=== PATIENT | female | born 1970 | race Caucasian/White ===

== ENCOUNTER 2019-03-17 15:09 | Outpatient (CLI) | payer OTHER | END 2019-03-17 15:10 | disposition home or self-care (01) | LOC: CTENTCT 15:09 | PROVIDERS: ATTEND Otolaryngology Plastic Surgery within the Head & Neck | DX: J32.9 Chronic sinusitis, unspecified (principal) | CPT/HCPCS: 70486 ==

== ENCOUNTER 2023-01-19 15:18 | Outpatient (CLI) | payer OTHER | END 2023-01-19 15:19 | disposition home or self-care (01) | LOC: BICMRI 15:18 | PROVIDERS: ATTEND Internal Medicine | DX: M54.50 Low back pain, unspecified (principal); M51.36 Other intervertebral disc degeneration, lumbar region; M48.061 Spinal stenosis, lumbar region without neurogenic claudication | CPT/HCPCS: 72148 ==

== ENCOUNTER 2025-02-08 11:24 | Outpatient (CLI) | payer OTHER | END 2025-02-08 11:25 | disposition home or self-care (01) | LOC: MRI 11:24 | PROVIDERS: ATTEND Internal Medicine | DX: M54.50 Low back pain, unspecified (principal); M47.816 Spondylosis without myelopathy or radiculopathy, lumbar region; M48.061 Spinal stenosis, lumbar region without neurogenic claudication | CPT/HCPCS: 72148 ==